=== PATIENT | male | born 1955 | race Caucasian/White ===

== ENCOUNTER 2019-11-13 09:47 | Inpatient (IN) | payer OTHER ==
--- NOTE | 2019-11-13 10:06 | BHS.RME ---
Substance Use & Tx History - Substance Use History Alcohol Substance amount: 6 beers Date of Last Use: 11/12/19 (last night) Cannabis Substance amount: $40 Frequency of use: Daily Substance route: Smoking Date of Last Use: 11/12/19 Physical/Psych/Mental Status - Behavior General Behavior: Increased activity (restlessness, agitation) Eye Contact: Normal - Cooperativeness Cooperativeness: Cooperative - Thinking Thought Processes: Tight, Logical, Goal Directed Thought content: Future oriented - Physical Health Problems Is patient presently having any pain?: No Does patient presently have any injuries (include location): No Does patient currently have a fever: No Is patient : No CIWA Nausea/Vomitin-No Nausea/No Vomiting Muscle Tremors: 1-None Visible, but Stopover Anxiety: 1-Mildly Anxious Agitation: 1-Slight > Activity Paroxysmal Sweats: No Perspiration Orientation: 0-Oriented Tacttile Disturbances: 0-None Auditory Disturbances: 0-None Visual Disturbances: 0-None Headache: 0-None Present (says he last drank yesterday but when pressed his use of marijuana is the problem and he is homeless.) CIWA-Ar Total Score: 3 Treatment Recommendation - Level of Care Level of Care: Outpatient (Refer to [facility] for outpatient treatment.)
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
[2019-11-13] MEDS ORDERED: IBUPROFEN 400 MG TABLET (FP) PO PRN (13:12)
[2019-11-13] MEDS ORDERED: BISMUTH SUBSALICYLATE 524 MG/30 ML UD PO PRN (13:12)
[2019-11-13] MEDS ORDERED: MELATONIN 5 MG TABLETS PO PRN (13:12)
[2019-11-13] MEDS ORDERED: MAGNESIUM CITRATE 300 ML BOTTLE PO PRN (13:12)
[2019-11-13] MEDS ORDERED: chlordiazePOXIDE HCL 25 MG CAPSULE PO PRN (13:12)
[2019-11-13] MEDS ORDERED: ACETAMINOPHEN 325 MG TABLET (FP) PO PRN ×2 (13:12)
[2019-11-13] MEDS ORDERED: MENTHOL/PHENOL 1 EACH UD MM PRN (13:12)
[2019-11-13] MEDS ORDERED: MAG HYDROX/AL HYDROX/SIMETH 30 ML UNIT-DOSE CUP PO PRN (13:12)
[2019-11-13] MEDS ORDERED: METHOCARBAMOL 500 MG TABLET PO PRN (13:12)
[2019-11-13] MEDS ORDERED: hydrOXYzine PAMOATE 25 MG CAPSULE (FP) PO PRN (13:12)
[2019-11-13] MEDS ORDERED: MAGNESIUM HYDROX 2400MG/30ML ORAL SUSPENSION 30 ML CUP PO PRN (13:12)
[2019-11-13 13:32] VITALS: BMI 30.2
[2019-11-13] MEDS ORDERED: PHENYTOIN NA EXTENDED 100 MG CAPSULE (FP) PO SCH (14:00)
[2019-11-13] MEDS: amLODIPine BESYLATE 10 MG TABLET (FP) PO SCH (14:53)
[2019-11-13] MEDS: NICOTINE 21 MG/24 HOURS TOPICAL PATCH TD SCH (14:55)
--- NOTE | 2019-11-13 15:33 | EKG ---
Test Reason : Blood Pressure : / mmHG Vent. Rate : 056 BPM Atrial Rate : 056 BPM P-R Int : 122 ms QRS Dur : 072 ms QT Int : 426 ms P-R-T Axes : 066 034 038 degrees QTc Int : 411 ms SINUS BRADYCARDIA OTHERWISE NORMAL ECG NO PREVIOUS ECGS AVAILABLE Confirmed by Henrik Gillis MD ([id number]) on 11/13/2019 3:33:05 PM Referred By: Confirmed By:Henrik Gillis MD
[2019-11-13] MEDS: INSULIN SLIDING SCALE (NOVOLOG) 1 VIAL SQ SCH ×2 (17:13→22:40)
[2019-11-13 17:30] LABS: HEMOGLOBIN 12.9 GM/dL (11.7-16.9); MCH 32.4 pg (25.7-33.7); MEAN CELL VOLUME 95.4 fl (80-96); PLATELET COUNT 257 K/MM3 (134-434); RBC 3.99 M/mm3 (4.00-5.60); RDW 14.8 % (11.9-15.9); WHITE BLOOD COUNT 6.2 K/mm3 (4.0-10.0)
[2019-11-13 17:56] LABS: ALBUMIN 3.2 g/dl (3.4-5.0); BILIRUBIN,TOTAL 0.8 mg/dL (0.2-1); BLOOD UREA NITROGEN 12.4 mg/dL (7-18); CALCIUM 8.8 mg/dL (8.5-10.1); CREATININE 0.8 mg/dL (0.55-1.3); POTASSIUM 3.8 mmol/L (3.5-5.1)
[2019-11-13] MEDS: chlordiazePOXIDE HCL 25 MG CAPSULE PO SCH ×2 (18:05→23:23)
[2019-11-13] MEDS: THIAMINE HCL 100 MG TABLET (FP) PO SCH (23:23)
[2019-11-14] MEDS: PHENYTOIN NA EXTENDED 100 MG CAPSULE (FP) PO SCH (06:00)
[2019-11-14] MEDS: chlordiazePOXIDE HCL 25 MG CAPSULE PO SCH ×4 (06:00→22:45)
[2019-11-14] MEDS: INSULIN SLIDING SCALE (NOVOLOG) 1 VIAL SQ SCH ×4 (07:46→22:46)
[2019-11-14] MEDS: PRENATAL VITAMINS W/ FOLIC ACID TABLET (FP) PO SCH (10:36)
[2019-11-14] MEDS: amLODIPine BESYLATE 10 MG TABLET (FP) PO SCH (10:36)
[2019-11-14] MEDS: NICOTINE 21 MG/24 HOURS TOPICAL PATCH TD SCH (10:37)
[2019-11-14] MEDS ORDERED: PHENYTOIN NA EXTENDED 100 MG CAPSULE (FP) PO ONE (10:59)
--- NOTE | 2019-11-14 11:10 | PN ---
S CIWA - CIWA Score Nausea/Vomitin-Mild Nausea/No Vomiting Muscle Tremors: 2 Anxiety: 2 Agitation: 2 Paroxysmal Sweats: 1-Minimal Palms Moist Orientation: 0-Oriented Tacttile Disturbances: 1-Very Mild Itch/Numbness Auditory Disturbances: 0-None Visual Disturbances: 0-None Headache: 2-Mild CIWA-Ar Total Score: 11 S Progress Note (SOAP) Subjective: alert,irritable,anxious,interrupted sleep,tremor,pain in the body Objective: 11/14/19 11:07 Vital Signs Temperature 98.2 F 11/14/19 08:32 Pulse Rate 82 11/14/19 08:32 Respiratory Rate 16 11/14/19 08:32 Blood Pressure 123/73 11/14/19 08:32 O2 Sat by Pulse Oximetry (%) Laboratory Last Values WBC 6.2 K/mm3 (4.0-10.0) 11/13/19 13:45 RBC 3.99 M/mm3 (4.00-5.60) L 11/13/19 13:45 Hgb 12.9 GM/dL (11.7-16.9) 11/13/19 13:45 Hct 38.0 % (35.4-49) 11/13/19 13:45 MCV 95.4 fl (80-96) 11/13/19 13:45 MCH 32.4 pg (25.7-33.7) 11/13/19 13:45 MCHC 34.0 g/dl (32.0-35.9) 11/13/19 13:45 RDW 14.8 % (11.9-15.9) 11/13/19 13:45 Plt Count 257 K/MM3 (134-434) 11/13/19 13:45 MPV 9.0 fl (7.5-11.1) 11/13/19 13:45 Sodium 136 mmol/L (136-145) 11/13/19 13:45 Potassium 3.8 mmol/L (3.5-5.1) 11/13/19 13:45 Chloride 103 mmol/L (98-107) 11/13/19 13:45 Carbon Dioxide 25 mmol/L (21-32) 11/13/19 13:45 Anion Gap 8 MMOL/L (8-16) 11/13/19 13:45 BUN 12.4 mg/dL (7-18) 11/13/19 13:45 Creatinine 0.8 mg/dL (0.55-1.3) 11/13/19 13:45 Est GFR (CKD-EPI)AfAm 108.65 11/13/19 13:45 Est GFR (CKD-EPI)NonAf 93.74 11/13/19 13:45 POC Glucometer 140 UNITS (80-120) 11/14/19 10:35 Random Glucose 130 mg/dL (74-106) H 11/13/19 13:45 Calcium 8.8 mg/dL (8.5-10.1) 11/13/19 13:45 Total Bilirubin 0.8 mg/dL (0.2-1) 11/13/19 13:45 AST 40 U/L (15-37) H 11/13/19 13:45 ALT 30 U/L (13-61) 11/13/19 13:45 Alkaline Phosphatase 66 U/L (45-117) 11/13/19 13:45 B-Natriuretic Peptide 289.4 pg/ml (5-125) H 11/13/19 13:45 Total Protein 7.0 g/dl (6.4-8.2) 11/13/19 13:45 Albumin 3.2 g/dl (3.4-5.0) L 11/13/19 13:45 Phenytoin 0.8 11/13/19 13:45 RPR Titer Nonreactive (NONREACTIVE) 11/13/19 13:45 Assessment: 11/14/19 11:08 withdrawal symptom Plan: continue detox librium regimen,dilantin level 0.8,will give dilantin 300 mgs po noow then dailly,repeat dilantin level in am
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
--- NOTE | 2019-11-14 11:12 | PN ---
S Progress Note Note: bgm Laboratory Last Values WBC 6.2 K/mm3 (4.0-10.0) 11/13/19 13:45 RBC 3.99 M/mm3 (4.00-5.60) L 11/13/19 13:45 Hgb 12.9 GM/dL (11.7-16.9) 11/13/19 13:45 Hct 38.0 % (35.4-49) 11/13/19 13:45 MCV 95.4 fl (80-96) 11/13/19 13:45 MCH 32.4 pg (25.7-33.7) 11/13/19 13:45 MCHC 34.0 g/dl (32.0-35.9) 11/13/19 13:45 RDW 14.8 % (11.9-15.9) 11/13/19 13:45 Plt Count 257 K/MM3 (134-434) 11/13/19 13:45 MPV 9.0 fl (7.5-11.1) 11/13/19 13:45 Sodium 136 mmol/L (136-145) 11/13/19 13:45 Potassium 3.8 mmol/L (3.5-5.1) 11/13/19 13:45 Chloride 103 mmol/L (98-107) 11/13/19 13:45 Carbon Dioxide 25 mmol/L (21-32) 11/13/19 13:45 Anion Gap 8 MMOL/L (8-16) 11/13/19 13:45 BUN 12.4 mg/dL (7-18) 11/13/19 13:45 Creatinine 0.8 mg/dL (0.55-1.3) 11/13/19 13:45 Est GFR (CKD-EPI)AfAm 108.65 11/13/19 13:45 Est GFR (CKD-EPI)NonAf 93.74 11/13/19 13:45 POC Glucometer 140 UNITS (80-120) 11/14/19 10:35 Random Glucose 130 mg/dL (74-106) H 11/13/19 13:45 Calcium 8.8 mg/dL (8.5-10.1) 11/13/19 13:45 Total Bilirubin 0.8 mg/dL (0.2-1) 11/13/19 13:45 AST 40 U/L (15-37) H 11/13/19 13:45 ALT 30 U/L (13-61) 11/13/19 13:45 Alkaline Phosphatase 66 U/L (45-117) 11/13/19 13:45 B-Natriuretic Peptide 289.4 pg/ml (5-125) H 11/13/19 13:45 Total Protein 7.0 g/dl (6.4-8.2) 11/13/19 13:45 Albumin 3.2 g/dl (3.4-5.0) L 11/13/19 13:45 Phenytoin 0.8 11/13/19 13:45 RPR Titer Nonreactive (NONREACTIVE) 11/13/19 13:45 bgm 140,will do bgm monitoring bid ac
[2019-11-14] MEDS ORDERED: MELATONIN 5 MG TABLETS PO PRN (11:37)
[2019-11-14] MEDS: risperiDONE 1 MG TABLET PO SCH ×2 (12:09→22:43)
[2019-11-14] MEDS: THIAMINE HCL 100 MG TABLET (FP) PO SCH (22:43)
[2019-11-15] MEDS: chlordiazePOXIDE HCL 25 MG CAPSULE PO SCH ×4 (05:30→22:45)
[2019-11-15] MEDS: INSULIN SLIDING SCALE (NOVOLOG) 1 VIAL SQ SCH ×4 (06:46→22:45)
[2019-11-15] MEDS: PHENYTOIN NA EXTENDED 100 MG CAPSULE (FP) PO SCH (06:46)
--- NOTE | 2019-11-15 09:25 | PN ---
S CIWA - CIWA Score Nausea/Vomitin Muscle Tremors: 2 Anxiety: 2 Agitation: 2 Paroxysmal Sweats: No Perspiration Orientation: 0-Oriented Tacttile Disturbances: 1-Very Mild Itch/Numbness Auditory Disturbances: 0-None Visual Disturbances: 0-None Headache: 2-Mild CIWA-Ar Total Score: 11 S Progress Note (SOAP) Subjective: alert,irritable,anxious,interrupted sleep,tremor,nausea,loose bowel movement Objective: 11/15/19 09:23 Vital Signs Temperature 98.8 F 11/15/19 05:25 Pulse Rate 71 11/15/19 05:25 Respiratory Rate 18 11/15/19 05:25 Blood Pressure 131/55 L 11/15/19 05:25 O2 Sat by Pulse Oximetry (%) 11/15/19 09:23 bgm 138 repeat dilantin level pending Assessment: 11/15/19 09:24 withdrawal symptom Plan: continue detox librium regimen,seizure precaution,dilantin 300 mgs po daily
[2019-11-15] MEDS: risperiDONE 1 MG TABLET PO SCH ×2 (11:20→22:46)
[2019-11-15] MEDS: NICOTINE 21 MG/24 HOURS TOPICAL PATCH TD SCH (11:20)
[2019-11-15] MEDS: amLODIPine BESYLATE 10 MG TABLET (FP) PO SCH (11:20)
[2019-11-15] MEDS: PRENATAL VITAMINS W/ FOLIC ACID TABLET (FP) PO SCH (11:20)
[2019-11-15] MEDS ORDERED: PHENYTOIN NA EXTENDED 100 MG CAPSULE (FP) PO ONE (15:44)
--- NOTE | 2019-11-15 15:47 | PN ---
[facility] Progress Note Note: dilantin level 2.6,to give dilantin 300 mgs po now then 300 mgs po daily, dilantin level in am
[2019-11-15] MEDS ORDERED: INSULIN SLIDING SCALE (NOVOLOG) 1 VIAL SQ ONE (17:11)
[2019-11-15] MEDS: THIAMINE HCL 100 MG TABLET (FP) PO SCH (22:46)
[2019-11-16] MEDS ORDERED: chlordiazePOXIDE HCL 10 MG CAPSULE PO PRN
[2019-11-16] MEDS: chlordiazePOXIDE HCL 10 MG CAPSULE PO SCH ×4 (05:37→22:32)
[2019-11-16] MEDS: PHENYTOIN NA EXTENDED 100 MG CAPSULE (FP) PO SCH (06:43)
[2019-11-16] MEDS: INSULIN SLIDING SCALE (NOVOLOG) 1 VIAL SQ SCH ×4 (07:37→22:30)
--- NOTE | 2019-11-16 09:38 | PN ---
S CIWA - CIWA Score Nausea/Vomitin-Mild Nausea/No Vomiting Muscle Tremors: 2 Anxiety: 2 Agitation: 2 Paroxysmal Sweats: No Perspiration Orientation: 0-Oriented Tacttile Disturbances: 1-Very Mild Itch/Numbness Auditory Disturbances: 0-None Visual Disturbances: 0-None Headache: 1-Very Mild CIWA-Ar Total Score: 9 BHS Progress Note (SOAP) Subjective: alert,irritable,anxious,interrupted sleep,loose bowel movement Objective: 11/16/19 09:37 Vital Signs Temperature 97.3 F L 11/16/19 06:38 Pulse Rate 88 11/16/19 06:38 Respiratory Rate 20 11/16/19 06:38 Blood Pressure 143/92 11/16/19 06:38 O2 Sat by Pulse Oximetry (%) Assessment: 11/16/19 09:37 withdrawal symptom Plan: continue detox librium regimen,repeat dilantin level pending
[2019-11-16] MEDS: risperiDONE 1 MG TABLET PO SCH ×2 (10:20→22:32)
[2019-11-16] MEDS: amLODIPine BESYLATE 10 MG TABLET (FP) PO SCH (10:20)
[2019-11-16] MEDS: NICOTINE 21 MG/24 HOURS TOPICAL PATCH TD SCH (10:20)
[2019-11-16] MEDS: PRENATAL VITAMINS W/ FOLIC ACID TABLET (FP) PO SCH (10:20)
[2019-11-16] MEDS: THIAMINE HCL 100 MG TABLET (FP) PO SCH (22:32)
[2019-11-17] MEDS: chlordiazePOXIDE HCL 10 MG CAPSULE PO SCH ×2 (06:10→17:36)
[2019-11-17] MEDS: PHENYTOIN NA EXTENDED 100 MG CAPSULE (FP) PO SCH (06:10)
[2019-11-17] MEDS ORDERED: INSULIN SLIDING SCALE (NOVOLOG) 1 VIAL SQ ONE (06:16)
[2019-11-17] MEDS: INSULIN SLIDING SCALE (NOVOLOG) 1 VIAL SQ SCH ×4 (06:17→22:26)
[2019-11-17] MEDS: NICOTINE 21 MG/24 HOURS TOPICAL PATCH TD SCH (10:20)
[2019-11-17] MEDS: risperiDONE 1 MG TABLET PO SCH ×2 (10:21→22:27)
[2019-11-17] MEDS: PRENATAL VITAMINS W/ FOLIC ACID TABLET (FP) PO SCH (10:21)
[2019-11-17] MEDS: amLODIPine BESYLATE 10 MG TABLET (FP) PO SCH (10:21)
--- NOTE | 2019-11-17 15:27 | PN ---
S CIWA - CIWA Score Nausea/Vomitin-No Nausea/No Vomiting Muscle Tremors: 2 Anxiety: 4-Mod. Anxious/Guarded Agitation: 3 Paroxysmal Sweats: No Perspiration Orientation: 0-Oriented Tacttile Disturbances: 0-None Auditory Disturbances: 0-None Visual Disturbances: 0-None Headache: 0-None Present CIWA-Ar Total Score: 9 BHS Progress Note (SOAP) Subjective: Anxious, Irritable, Restless. Objective: PATIENT A & O X 3, OBSERVED AMBULATING ON DETOX UNIT UNASSISTED. IN NO ACUTE DISTRESS. 11/17/19 15:25 Vital Signs Temperature 98.6 F 11/17/19 09:54 Pulse Rate 94 H 11/17/19 09:54 Respiratory Rate 16 11/17/19 09:54 Blood Pressure 135/83 11/17/19 09:54 O2 Sat by Pulse Oximetry (%) Laboratory Tests 11/13/19 11/13/19 11/13/19 13:27 13:45 13:45 WBC 6.2 RBC 3.99 L Hgb 12.9 Hct 38.0 MCV 95.4 MCH 32.4 MCHC 34.0 RDW 14.8 Plt Count 257 MPV 9.0 Sodium 136 Potassium 3.8 Chloride 103 Carbon Dioxide 25 Anion Gap 8 BUN 12.4 Creatinine 0.8 Est GFR (CKD-EPI)AfAm 108.65 Est GFR (CKD-EPI)NonAf 93.74 POC Glucometer 126 Random Glucose 130 H Calcium 8.8 Total Bilirubin 0.8 AST 40 H ALT 30 Alkaline Phosphatase 66 B-Natriuretic Peptide Total Protein 7.0 Albumin 3.2 L Phenytoin RPR Titer 11/13/19 11/13/19 11/13/19 13:45 13:45 13:45 WBC RBC Hgb Hct MCV MCH MCHC RDW Plt Count MPV Sodium Potassium Chloride Carbon Dioxide Anion Gap BUN Creatinine Est GFR (CKD-EPI)AfAm Est GFR (CKD-EPI)NonAf POC Glucometer Random Glucose Calcium Total Bilirubin AST ALT Alkaline Phosphatase B-Natriuretic Peptide 289.4 H Total Protein Albumin Phenytoin 0.8 RPR Titer Nonreactive 11/13/19 11/13/19 11/14/19 16:28 21:57 06:01 WBC RBC Hgb Hct MCV MCH MCHC RDW Plt Count MPV Sodium Potassium Chloride Carbon Dioxide Anion Gap BUN Creatinine Est GFR (CKD-EPI)AfAm Est GFR (CKD-EPI)NonAf POC Glucometer 148 136 153 Random Glucose Calcium Total Bilirubin AST ALT Alkaline Phosphatase B-Natriuretic Peptide Total Protein Albumin Phenytoin RPR Titer 11/14/19 11/14/19 11/15/19 10:35 16:56 05:30 WBC RBC Hgb Hct MCV MCH MCHC RDW Plt Count MPV Sodium Potassium Chloride Carbon Dioxide Anion Gap BUN Creatinine Est GFR (CKD-EPI)AfAm Est GFR (CKD-EPI)NonAf POC Glucometer 140 139 138 Random Glucose Calcium Total Bilirubin AST ALT Alkaline Phosphatase B-Natriuretic Peptide Total Protein Albumin Phenytoin RPR Titer 11/15/19 11/15/19 11/15/19 07:40 11:22 16:54 WBC RBC Hgb Hct MCV MCH MCHC RDW Plt Count MPV Sodium Potassium Chloride Carbon Dioxide Anion Gap BUN Creatinine Est GFR (CKD-EPI)AfAm Est GFR (CKD-EPI)NonAf POC Glucometer 186 169 Random Glucose Calcium Total Bilirubin AST ALT Alkaline Phosphatase B-Natriuretic Peptide Total Protein Albumin Phenytoin 2.6 RPR Titer 11/15/19 11/16/19 11/16/19 21:40 05:36 08:00 WBC RBC Hgb Hct MCV MCH MCHC RDW Plt Count MPV Sodium Potassium Chloride Carbon Dioxide Anion Gap BUN Creatinine Est GFR (CKD-EPI)AfAm Est GFR (CKD-EPI)NonAf POC Glucometer 198 153 Random Glucose Calcium Total Bilirubin AST ALT Alkaline Phosphatase B-Natriuretic Peptide Total Protein Albumin Phenytoin 6.8 RPR Titer 11/16/19 11/16/19 11/16/19 12:49 16:40 21:37 WBC RBC Hgb Hct MCV MCH MCHC RDW Plt Count MPV Sodium Potassium Chloride Carbon Dioxide Anion Gap BUN Creatinine Est GFR (CKD-EPI)AfAm Est GFR (CKD-EPI)NonAf POC Glucometer 230 149 250 Random Glucose Calcium Total Bilirubin AST ALT Alkaline Phosphatase B-Natriuretic Peptide Total Protein Albumin Phenytoin RPR Titer 11/17/19 11/17/19 06:14 10:19 WBC RBC Hgb Hct MCV MCH MCHC RDW Plt Count MPV Sodium Potassium Chloride Carbon Dioxide Anion Gap BUN Creatinine Est GFR (CKD-EPI)AfAm Est GFR (CKD-EPI)NonAf POC Glucometer 166 235 Random Glucose Calcium Total Bilirubin AST ALT Alkaline Phosphatase B-Natriuretic Peptide Total Protein Albumin Phenytoin RPR Titer LABS NOTED. DILANTIN LEVEL NOTED TO BE GRADUALLY INCREASING WITH EACH ASSESSMENT. 11/17/19 15:29 Assessment: 11/17/19 15:25 WITHDRAWAL SYMPTOMS. Plan: CONTINUE DETOX. PATIENT SCHEDULED FOR DISCHARGE FROM DETOX UNIT TOMORROW.
[2019-11-17] MEDS: THIAMINE HCL 100 MG TABLET (FP) PO SCH (22:27)
[2019-11-18] MEDS ORDERED: chlordiazePOXIDE HCL 10 MG CAPSULE PO ONE (05:00)
[2019-11-18] MEDS: PHENYTOIN NA EXTENDED 100 MG CAPSULE (FP) PO SCH (06:27)
[2019-11-18] MEDS: INSULIN SLIDING SCALE (NOVOLOG) 1 VIAL SQ SCH ×2 (07:51→11:24)
[2019-11-18 09:14] VITALS: BP 128/82; PULSE 91; TEMP 98.2
[2019-11-18] MEDS: PRENATAL VITAMINS W/ FOLIC ACID TABLET (FP) PO SCH (10:46)
[2019-11-18] MEDS: risperiDONE 1 MG TABLET PO SCH (10:46)
[2019-11-18] MEDS: amLODIPine BESYLATE 10 MG TABLET (FP) PO SCH (10:46)
[2019-11-18] MEDS: NICOTINE 21 MG/24 HOURS TOPICAL PATCH TD SCH (10:46)
[2019-11-18] MEDS ORDERED: INSULIN (NOVOLOG) ASPART 100 UNITS/ML 10ML VIAL ONE (11:17)
--- NOTE | 2019-11-18 11:47 | DS ---
[facility] Detox Discharge Summary Admission Date: 11/13/19 Discharge Date: 11/18/19 - History Present History: Alcohol Dependence Additional Comments: Patient completed detox successfully and discharged safely. Instructed to follow up with PCP within 1-2 weeks. Pertinent Past History: ETOH DM HTN Hypothyroidism Seizure disorder OA Bipolar disorder Hepatitis C Nicotine dependence - Physical Exam Results Vital Signs: Vital Signs Temperature 98.2 F 11/18/19 08:30 Pulse Rate 91 H 11/18/19 08:30 Respiratory Rate 19 11/18/19 08:30 Blood Pressure 128/82 11/18/19 08:30 O2 Sat by Pulse Oximetry (%) Pertinent Admission Physical Exam Findings: Withdrawal sxs Laboratory Tests 11/13/19 11/13/19 11/13/19 13:27 13:45 13:45 WBC 6.2 RBC 3.99 L Hgb 12.9 Hct 38.0 MCV 95.4 MCH 32.4 MCHC 34.0 RDW 14.8 Plt Count 257 MPV 9.0 Sodium 136 Potassium 3.8 Chloride 103 Carbon Dioxide 25 Anion Gap 8 BUN 12.4 Creatinine 0.8 Est GFR (CKD-EPI)AfAm 108.65 Est GFR (CKD-EPI)NonAf 93.74 POC Glucometer 126 Random Glucose 130 H Calcium 8.8 Total Bilirubin 0.8 AST 40 H ALT 30 Alkaline Phosphatase 66 B-Natriuretic Peptide Total Protein 7.0 Albumin 3.2 L Phenytoin RPR Titer 11/13/19 11/13/19 11/13/19 13:45 13:45 13:45 WBC RBC Hgb Hct MCV MCH MCHC RDW Plt Count MPV Sodium Potassium Chloride Carbon Dioxide Anion Gap BUN Creatinine Est GFR (CKD-EPI)AfAm Est GFR (CKD-EPI)NonAf POC Glucometer Random Glucose Calcium Total Bilirubin AST ALT Alkaline Phosphatase B-Natriuretic Peptide 289.4 H Total Protein Albumin Phenytoin 0.8 RPR Titer Nonreactive 11/13/19 11/13/19 11/14/19 16:28 21:57 06:01 WBC RBC Hgb Hct MCV MCH MCHC RDW Plt Count MPV Sodium Potassium Chloride Carbon Dioxide Anion Gap BUN Creatinine Est GFR (CKD-EPI)AfAm Est GFR (CKD-EPI)NonAf POC Glucometer 148 136 153 Random Glucose Calcium Total Bilirubin AST ALT Alkaline Phosphatase B-Natriuretic Peptide Total Protein Albumin Phenytoin RPR Titer 11/14/19 11/14/1920 10:35 16:56 05:30 WBC RBC Hgb Hct MCV MCH MCHC RDW Plt Count MPV Sodium Potassium Chloride Carbon Dioxide Anion Gap BUN Creatinine Est GFR (CKD-EPI)AfAm Est GFR (CKD-EPI)NonAf POC Glucometer 140 139 138 Random Glucose Calcium Total Bilirubin AST ALT Alkaline Phosphatase B-Natriuretic Peptide Total Protein Albumin Phenytoin RPR Titer 11/15/19 11/15/19 11/15/19 07:40 11:22 16:54 WBC RBC Hgb Hct MCV MCH MCHC RDW Plt Count MPV Sodium Potassium Chloride Carbon Dioxide Anion Gap BUN Creatinine Est GFR (CKD-EPI)AfAm Est GFR (CKD-EPI)NonAf POC Glucometer 186 169 Random Glucose Calcium Total Bilirubin AST ALT Alkaline Phosphatase B-Natriuretic Peptide Total Protein Albumin Phenytoin 2.6 RPR Titer 11/15/19 11/16/19 11/16/19 21:40 05:36 08:00 WBC RBC Hgb Hct MCV MCH MCHC RDW Plt Count MPV Sodium Potassium Chloride Carbon Dioxide Anion Gap BUN Creatinine Est GFR (CKD-EPI)AfAm Est GFR (CKD-EPI)NonAf POC Glucometer 198 153 Random Glucose Calcium Total Bilirubin AST ALT Alkaline Phosphatase B-Natriuretic Peptide Total Protein Albumin Phenytoin 6.8 RPR Titer 11/16/19 11/16/19 11/16/19 12:49 16:40 21:37 WBC RBC Hgb Hct MCV MCH MCHC RDW Plt Count MPV Sodium Potassium Chloride Carbon Dioxide Anion Gap BUN Creatinine Est GFR (CKD-EPI)AfAm Est GFR (CKD-EPI)NonAf POC Glucometer 230 149 250 Random Glucose Calcium Total Bilirubin AST ALT Alkaline Phosphatase B-Natriuretic Peptide Total Protein Albumin Phenytoin RPR Titer 11/17/19 11/17/19 11/17/19 06:14 10:19 16:39 WBC RBC Hgb Hct MCV MCH MCHC RDW Plt Count MPV Sodium Potassium Chloride Carbon Dioxide Anion Gap BUN Creatinine Est GFR (CKD-EPI)AfAm Est GFR (CKD-EPI)NonAf POC Glucometer 166 235 190 Random Glucose Calcium Total Bilirubin AST ALT Alkaline Phosphatase B-Natriuretic Peptide Total Protein Albumin Phenytoin RPR Titer 11/17/19 11/18/19 11/18/19 22:25 05:59 10:44 WBC RBC Hgb Hct MCV MCH MCHC RDW Plt Count MPV Sodium Potassium Chloride Carbon Dioxide Anion Gap BUN Creatinine Est GFR (CKD-EPI)AfAm Est GFR (CKD-EPI)NonAf POC Glucometer 161 166 252 Random Glucose Calcium Total Bilirubin AST ALT Alkaline Phosphatase B-Natriuretic Peptide Total Protein Albumin Phenytoin RPR Titer Labs reviewed: elevated glucose level noted due to DM, albumin 3.2 (low): encourage protein intake - Treatment Hospital Course: Detox Protocol Followed, Detoxed Safely, Responded well, Discharged Condition Good - Medication Discharge Medications: Ambulatory Orders Amlodipine Besylate [Norvasc -] 10 mg PO DAILY #30 tablet 05/03/13 Phenytoin Na Extended [Dilantin -] 300 mg PO DAILY #90 capsule 05/03/13 - Diagnosis (1) Type 2 diabetes mellitus with hyperglycemia Current Visit: Yes Status: Chronic (2) Hypoalbuminemia Current Visit: Yes Status: Acute (3) Alcohol dependence with withdrawal, uncomplicated Current Visit: Yes Status: Acute (4) Osteoarthritis Current Visit: Yes Status: Chronic (5) Bipolar disorder Current Visit: Yes Status: Chronic (6) HTN (hypertension) Current Visit: Yes Status: Chronic (7) Hypothyroidism Current Visit: Yes Status: Chronic (8) Nicotine dependence Current Visit: Yes Status: Chronic (9) Hepatitis C carrier Current Visit: Yes Status: Chronic (10) Seizure disorder Current Visit: Yes Status: Chronic - AMA Did Patient Leave Against Medical Advice: No (Patient to follow up with PCP within 1-2 weeks)
== END 2019-11-18 11:26 | disposition home or self-care (01) | DRG 775 ==
LOC: YASAS 09:47 → Y6N 13:25
PROVIDERS: ADMIT Allergy & Immunology; ATTEND Allergy & Immunology
PROC: HZ2ZZZZ Detoxification Services for Substance Abuse Treatment (ICD-10-PCS; principal; 2019-11-13)
DX: F10.230 Alcohol dependence with withdrawal, uncomplicated (principal); F12.20 Cannabis dependence, uncomplicated; F17.210 Nicotine dependence, cigarettes, uncomplicated; F19.282 Other psychoactive substance dependence with psychoactive substance-induced sleep disorder; F19.24 Other psychoactive substance dependence with psychoactive substance-induced mood disorder; F31.9 Bipolar disorder, unspecified; F43.10 Post-traumatic stress disorder, unspecified; G40.909 Epilepsy, unspecified, not intractable, without status epilepticus; I10 Essential (primary) hypertension; M19.90 Unspecified osteoarthritis, unspecified site; B18.2 Chronic viral hepatitis C; E88.09 Other disorders of plasma-protein metabolism, not elsewhere classified; E89.0 Postprocedural hypothyroidism; Z98.890 Other specified postprocedural states; Z56.0 Unemployment, unspecified; Z59.0 Homelessness
CPT/HCPCS: 36415; 71046-TC-FY; 80053; 80185; 82962; 83880; 85027; 86593; 93005; 93010; J2794